=== PATIENT | female | born 1980 | race Caucasian/White ===

== ENCOUNTER 2018-03-23 05:45 | Day surgery (SDC) | payer OTHER ==
[2018-03-23] MEDS: LACTATED RINGER'S 1,000 ML IV* (06:30)
[2018-03-23] MEDS ORDERED: ROCURONIUM 50 MG INJ (07:00)
[2018-03-23] MEDS ORDERED: BUPIVACAINE 0.25%/EPI (SDV) 30 ML INJ (07:04)
[2018-03-23] MEDS: BUPIVACAINE 0.25%/EPI (SDV) 30 ML INJ INJ (07:21)
[2018-03-23] MEDS ORDERED: FENTAnyl 50 MCG/ML VIAL IV ×2 (07:30)
[2018-03-23] MEDS ORDERED: HYDROmorphONE 1 MG/5 ML IV SYRINGE IV ×2 (07:30)
[2018-03-23] MEDS ORDERED: OXYCODONE/ACETAMINOPHEN (5/325) TAB PO (07:30)
[2018-03-23] MEDS ORDERED: PROCHLORPERAZINE 10 MG INJ IV (07:30)
[2018-03-23] MEDS ORDERED: DIPHENHYDRAMINE 50 MG INJ IV (07:30)
[2018-03-23] MEDS ORDERED: MEPERIDINE 25 MG INJ IV (07:30)
[2018-03-23] MEDS ORDERED: PROPOFOL 20 ML (07:38)
[2018-03-23] MEDS ORDERED: LIDOCAINE 2% (SDV) 5 ML INJ (07:38)
[2018-03-23] MEDS ORDERED: FENTAnyl 50 MCG/ML VIAL (07:38)
[2018-03-23] MEDS ORDERED: SUCCINYLCHOLINE CHLORIDE 100 MG/5 ML SYG IV (07:38)
[2018-03-23] MEDS ORDERED: MIDAZOLAM 1 MG/ML 2 ML INJ (07:38)
[2018-03-23] MEDS ORDERED: CEFAZOLIN 1 GM INJ (07:48)
[2018-03-23] MEDS ORDERED: ONDANSETRON 4 MG INJ (07:48)
[2018-03-23] MEDS ORDERED: DEXAMETHASONE 4 MG/ML 1 ML INJ (07:48)
[2018-03-23] MEDS ORDERED: PHENYLephrine (100 MCG/ML) 5ML SYG (07:49)
[2018-03-23] MEDS: CEFAZOLIN 2 GM/50 ML (PMX) 50 ML IVPB (07:50)
[2018-03-23] MEDS ORDERED: NEOSTIGMINE 3 MG/3 ML SYRINGE (08:16)
[2018-03-23] MEDS ORDERED: GLYCOPYRROLATE 0.4 MG INJ (08:16)
[2018-03-23] MEDS ORDERED: KETOROLAC 30 MG INJ (08:17)
[2018-03-23] MEDS: FENTAnyl 50 MCG/ML VIAL IV ×2 (08:44→08:50)
[2018-03-23] MEDS: HYDROmorphONE 1 MG/5 ML IV SYRINGE IV ×2 (08:45→08:51)
[2018-03-23] MEDS: ONDANSETRON 4 MG INJ IV ×2 (08:49→10:37)
== END 2018-03-23 11:41 | disposition home or self-care (01) ==
LOC: SDS 05:45
DX: Z30.2 Encounter for sterilization (principal)
CPT/HCPCS: 58670; 71045; 93005